=== PATIENT | female | born 1950 | race Caucasian/White ===

== ENCOUNTER 2022-05-20 11:15 | Emergency (ER) | payer OTHER ==
[~2022-05-20] VITALS: Ht 167.6 cm; Wt 80.7 kg
[2022-05-20] MEDS ORDERED: IBUPROFEN 600 MG TAB PO STA (12:12)
[2022-05-20] MEDS ORDERED: TETANUS/DIPHTHERIA TOX ADULT 0.5 ML SYR IM ONE (12:15)
[2022-05-20] MEDS ORDERED: KETOROLAC TROMETHAMINE 30 MG/ML VIAL ONE (12:52)
[2022-05-20] MEDS ORDERED: TETANUS/DIPHTHERIA TOX ADULT 0.5 ML SYR ONE (12:52)
[2022-05-20] MEDS ORDERED: SODIUM CHLORIDE 0.9% 250ML 250 ML ONE (12:52)
[2022-05-20] MEDS ORDERED: Ampicillin/Sulbactam 3 GM Vial ONE (12:52)
[2022-05-20] MEDS ORDERED: KETOROLAC TROMETHAMINE 30 MG/ML VIAL IV STA (12:55)
[2022-05-20] MEDS ORDERED: LIDOCAINE 1% 10 ML MULTIDOSE VIAL IJ ONE ×2 (15:00→15:09)
[2022-05-20] MEDS ORDERED: Morphine 4mg INJECTION 4 MG/ML INJ IV ONE (15:00)
[2022-05-20] MEDS ORDERED: ONDANSETRON HCL INJ 2MG/ML 2ML 2 MG/ML VIAL IV STA (15:00)
[2022-05-20] MEDS ORDERED: ONDANSETRON HCL INJ 2MG/ML 2ML 2 MG/ML VIAL ONE (15:10)
[2022-05-20] MEDS ORDERED: Morphine 4mg INJECTION 4 MG/ML INJ ONE (15:10)
[2022-05-20] MEDS ORDERED: NEOMYCIN/POLYMYX/BACITR OINT 0.9 GM PKT ONE (16:03)
[2022-05-20] MEDS ORDERED: AMOX TR-K CLV1 EAC2 PO (16:11)
[2022-05-20] MEDS ORDERED: CLINDAMYCIN HC300 MG PO (16:12)
[2022-05-20] MEDS ORDERED: HYDROCODON-ACE1 EA12 PO (16:22)
[2022-05-20 16:41] VITALS: BP 129/74
== END 2022-05-20 16:48 | disposition home or self-care (01) ==
LOC: FSED 11:19
DX: S61.412A Laceration without foreign body of left hand, initial encounter (principal); W54.0XXA Bitten by dog, initial encounter; E03.9 Hypothyroidism, unspecified; F32.A Depression, unspecified; F17.200 Nicotine dependence, unspecified, uncomplicated
CPT/HCPCS: 90714; 99284; J0295; J1885; J2270; J2405; J7050